=== PATIENT | male | born 1970 | race American Indian/Alaskan Native ===

== ENCOUNTER 2017-09-10 11:49 | Observation (INO) | payer MEDICAID, OTHER ==
[2017-09-10] MEDS ORDERED: Sodium Chloride 0.9% 10 ML Syringe FLUSH PRN (11:59)
[2017-09-10 12:45] LABS: ANION GAP 11.6; CHLORIDE,CL 92 mmol/L (101-111); SODIUM,NA 122 mmol/L (135-145)
[2017-09-10] MEDS ORDERED: Sodium Chloride 0.9% 1,000 ML IV ONE (13:02)
[2017-09-10] MEDS ORDERED: Insulin Regular, Human 100 Units/ML 3 ML Vial IV ONE (13:02)
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
[2017-09-10] MEDS ORDERED: Acetaminophen 325 MG Tab PO PRN (15:27)
[2017-09-10] MEDS ORDERED: Morphine 2 MG/ML Syringe IVPUSH PRN (15:27)
[2017-09-10] MEDS ORDERED: LORazepam 1 MG Tab PO PRN (15:39)
[2017-09-10] MEDS: Sodium Chloride 0.9% 1,000 ML IV SCH ×2 (16:11→22:29)
[2017-09-10] MEDS ORDERED: Insulin Detemir 100 Units/ML 3 ML Pen SUBCUT SCH (17:00)
[2017-09-10] MEDS: Insulin Detemir 100 Units/ML 3 ML Pen SUBCUT SCH (18:16)
[2017-09-10] MEDS: Insulin Aspart 100 Units/ML 3 ML Pen SUBCUT SCH ×3 (18:17→21:31)
[2017-09-10] MEDS ORDERED: Insulin Aspart 100 Units/ML 3 ML Pen SUBCUT SCH (19:00)
[2017-09-10] MEDS: oxyCODONE 5 MG Tab PO PRN ×2 (19:45→23:45)
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
[2017-09-10 21:30] LABS: ANION GAP 9.7; CHLORIDE,CL 105 mmol/L (101-111); SODIUM,NA 136 mmol/L (135-145)
[2017-09-10] MEDS: Zolpidem 5 MG Tab PO PRN (23:45)
[2017-09-11] MEDS: Sodium Chloride 0.9% 1,000 ML IV SCH ×3 (05:40→22:31)
[2017-09-11 06:46] LABS: ANION GAP 8.7; CHLORIDE,CL 106 mmol/L (101-111); SODIUM,NA 134 mmol/L (135-145)
[2017-09-11] MEDS: oxyCODONE 5 MG Tab PO PRN ×3 (08:41→21:00)
[2017-09-11] MEDS: Insulin Aspart 100 Units/ML 3 ML Pen SUBCUT SCH ×6 (08:42→21:01)
[2017-09-11] MEDS: Insulin Detemir 100 Units/ML 3 ML Pen SUBCUT SCH ×3 (08:43→21:01)
[2017-09-11] MEDS: Enoxaparin 40 MG/0.4 ML Syringe SUBCUT SCH (08:50)
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
[2017-09-11] MEDS: metFORMIN 500 MG Tab PO SCH ×2 (12:30→17:08)
[2017-09-11] MEDS: glipiZIDE 5 MG Tab PO SCH (17:07)
[2017-09-11] MEDS: Zolpidem 5 MG Tab PO PRN (21:01)
[2017-09-12] MEDS: glipiZIDE 5 MG Tab PO SCH (06:04)
[2017-09-12 06:49] LABS: ANION GAP 10.6; CHLORIDE,CL 102 mmol/L (101-111); SODIUM,NA 133 mmol/L (135-145)
[2017-09-12] MEDS: Insulin Aspart 100 Units/ML 3 ML Pen SUBCUT SCH ×4 (08:33→20:42)
[2017-09-12] MEDS: metFORMIN 500 MG Tab PO SCH ×2 (08:34→17:40)
[2017-09-12] MEDS: Enoxaparin 40 MG/0.4 ML Syringe SUBCUT SCH (08:34)
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
[2017-09-12] MEDS: oxyCODONE 5 MG Tab PO PRN ×2 (12:57→21:28)
[2017-09-12] MEDS ORDERED: glipiZIDE 5 MG Tab PO SCH (17:00)
[2017-09-12] MEDS: Insulin Detemir 100 Units/ML 3 ML Pen SUBCUT SCH (20:41)
[2017-09-12] MEDS: Zolpidem 5 MG Tab PO PRN (21:28)
[2017-09-13] MEDS ORDERED: glipiZIDE 5 MG Tab PO SCH (07:30)
[2017-09-13] MEDS: Insulin Aspart 100 Units/ML 3 ML Pen SUBCUT SCH (08:21)
[2017-09-13] MEDS: metFORMIN 500 MG Tab PO SCH (08:52)
[2017-09-13] MEDS: Enoxaparin 40 MG/0.4 ML Syringe SUBCUT SCH (08:53)
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
== END 2017-09-13 13:25 | disposition home or self-care (01) ==
LOC: DL.ED 11:49 → DL.MS 14:27 → UNDOADMOB 14:27 → DL.MS 15:27
PROVIDERS: ADMIT Internal Medicine; ATTEND Internal Medicine
DX: S00.81XA Abrasion of other part of head, initial encounter (principal); R74.0 Nonspecific elevation of levels of transaminase and lactic acid dehydrogenase [LDH]; Y09 Assault by unspecified means; E11.65 Type 2 diabetes mellitus with hyperglycemia; Z79.4 Long term (current) use of insulin; Z79.899 Other long term (current) drug therapy; Z87.891 Personal history of nicotine dependence
CPT/HCPCS: 36415; 73502; 80048; 80053; 80076; 80305; 81001; 82009; 82962; 83036; 85025; 85027; 96360; 99285; A9270; G0480; J1650; J1815; J7030; 96361; 96372; 96374; G0378

== ENCOUNTER 2020-11-22 19:40 | Emergency (ER) | payer MEDICAID, OTHER ==
[2020-11-22] MEDS ORDERED: Sodium Chloride 0.9% 1,000 ML IV ONE (20:00)
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
[2020-11-22 20:37] LABS: CHLORIDE,CL 94 mmol/L (98-107); SODIUM,NA 129 mmol/L (136-145)
[2020-11-22 20:39] LABS: ACETAMINOPHEN 0 ug/mL (10-30 (Therapeutic))
[2020-11-22] MEDS ORDERED: Glucagon,Human Recombinant 1 MG Vial IM PRN (20:46)
[2020-11-22] MEDS ORDERED: Insulin Glarg,Human.Rec.Analog 100 Unit/ML SUBCUT ONE (20:46)
[2020-11-22] MEDS ORDERED: 50% Dextrose in Water 50 ML Syringe IV PRN (20:46)
--- NOTE | 2020-11-22 21:03 | CR ---
PROCEDURE INFORMATION: Exam: XR Right Hip Exam date and time: 11/22/2020 8:35 PM Age: 50 years old Clinical indication: Other: Fall/pain; Additional info: Right hip pain TECHNIQUE: Imaging protocol: XR Right hip. Views: 2 or 3 views hip with pelvis when performed. Total images: 4 COMPARISON: CR Hip Min 2V or 3V w Pelvis Rt 09/10/2017 12:16 PM FINDINGS: Bones/joints: Degenerative changes of the visualized lumbosacral spine. Complex right hip arthroplasty in place. Alignment appears unchanged. No acute fracture. Soft tissues: Unremarkable. IMPRESSION: Similar appearance of right hip arthroplasty. No acute fracture.
== END 2020-11-22 21:40 ==
LOC: DL.ED 19:40
DX: E11.65 Type 2 diabetes mellitus with hyperglycemia (principal); M25.551 Pain in right hip; G89.29 Other chronic pain; F15.90 Other stimulant use, unspecified, uncomplicated; Z20.822 Contact with and (suspected) exposure to COVID-19; Z91.048 Other nonmedicinal substance allergy status; Z79.4 Long term (current) use of insulin
CPT/HCPCS: 36415; 73502; 80053; 80143; 80179; 80305; 80307; 81001; 82009; 82947; 85025; 87635; 99284; 99285; J1815; J7030; U0002

== ENCOUNTER 2020-11-25 17:54 | Emergency (ER) | payer OTHER ==
--- NOTE | 2020-11-25 18:42 | EDM.PDOC ---
<Vinay Chandler - Last Filed: 11/25/20 21:23> ED HPI GENERAL MEDICAL PROBLEM - General Chief Complaint: Diabetic Complaint Stated Complaint: AMBULANCE Time Seen by Provider: 11/25/20 18:34 Source of Information: Reports: Patient - History of Present Illness INITIAL COMMENTS - FREE TEXT/NARRATIVE: El is a 50 year old male with a significant past medical history of poorly controlled type 2 diabetes that presents to the emergency department for hyperglycemia. El checked his blood sugar earlier today and found that his blood sugar was in the 400's, he called EMS as he was concerned it was so high. He denies any headaches, dizziness, nausea, vomiting, chest pain, abdominal pain, melena or hematochezia. He has not had a PCP in around 1 year, he currently get's his Levemir from a friend, he takes anywhere from 2-10 units at a time. He does still take his metformin daily. He has been urinating more frequently lately. Onset: Today - Related Data Allergies Allergy/AdvReac Type Severity Reaction Status Date / Time adhesive Allergy Intermediate Rash Verified 11/25/20 18:15 adhesive tape Allergy Intermediate Rash Verified 11/25/20 18:15 Home Meds: Home Meds Insulin Detemir [Levemir] 10 unit SUBCUT BEDTIME 30 Days #1 pen 09/13/17 [Rx] glipiZIDE [Glucotrol XL] 10 mg PO DAILY 30 Days #30 tab.er 09/13/17 [Rx] metFORMIN [Glucophage] 500 mg PO BIDMEALS 30 Days #60 tablet 09/13/17 [Rx] Past Medical History HEENT History: Reports: None Musculoskeletal History: Reports: Fracture Endocrine/Metabolic History: Reports: Diabetes, Type II - Infectious Disease History Infectious Disease History: Reports: MRSA - Past Surgical History HEENT Surgical History: Reports: Naso-Sinus Surgery Endocrine Surgical History: Reports: None Musculoskeletal Surgical History: Reports: Hip Replacement Other Musculoskeletal Surgeries/Procedures:: R) Social & Family History - Family History Family Medical History: No Pertinent Family History - Tobacco Use Tobacco Use Status *Q: Never Tobacco User Second Hand Smoke Exposure: No - Caffeine Use Caffeine Use: Reports: Soda Other Caffeine Use: 4-5 cups per day - Recreational Drug Use Recreational Drug Use: Yes Recreational Drug Type: Reports: Methamphetamine - Living Situation & Occupation Living situation: Reports: with Family Occupation: Unemployed ED ROS GENERAL - Review of Systems Review Of Systems: Comprehensive ROS is negative, except as noted in HPI. ED EXAM GENERAL NO PERIP PULSE - Physical Exam Exam: See Below Exam Limited By: No Limitations General Appearance: Alert, WD/WN, No Apparent Distress Eye Exam: Bilateral Eye: EOMI Ears: Normal External Exam Nose: Normal Inspection Head: Atraumatic Respiratory/Chest: No Respiratory Distress, Lungs Clear, Normal Breath Sounds Cardiovascular: Normal Peripheral Pulses, Regular Rate, Rhythm GI/Abdominal: Normal Bowel Sounds, Soft, Non-Tender, No Organomegaly, No Distention, No Mass Neurological: Alert, Oriented, CN II-XII Intact, Normal Cognition, No Motor/Sensory Deficits Skin Exam: Warm, Dry Departure - Departure Time of Disposition: 21:28 Disposition: Home, Self-Care 01 Condition: Good Clinical Impression: Hyperglycemia due to type 2 diabetes mellitus Qualifiers: Diabetes mellitus snf insulin use: without terminal supervisor use Qualified Code(s): E11.65 - Type 2 diabetes mellitus with hyperglycemia - Discharge Information *PRESCRIPTION DRUG MONITORING PROGRAM REVIEWED*: Not Applicable *COPY OF PRESCRIPTION DRUG MONITORING REPORT IN PATIENT YULISA: Not Applicable Instructions: Type 2 Diabetes Mellitus, Diagnosis, Adult, [id number] Referrals: PCP,None [Primary Care Provider] - Forms: ED Department Discharge Additional Instructions: Follow-up with a primary care provider to help with glucose monitoring and insulin management. Advised that he should stop taking insulin that he buys off the street. Sepsis Event Note (ED) - Evaluation Sepsis Screening Result: No Definite Risk - Assessment/Plan Assessment:: El is a 50 year old poorly controlled diabetic that presented to the ED with hyperglycemia. CMP was significant for mild hyponatremia and hyperglycemia. He was treated with 1 bolus of fluids and 20 units of insulin. Glucose on recheck following treatment was 234. Lab work and exam was not suggestive of DKA. <Shereen Ray - Last Filed: 11/26/20 00:15> Course - Vital Signs Last Recorded V/S: Last Vital Signs Temp 98.2 F 11/25/20 18:15 Pulse 84 11/25/20 18:15 Resp 16 11/25/20 18:15 BP 144/76 H 11/25/20 18:15 Pulse Ox 100 11/25/20 18:15 - Orders/Labs/Meds Labs: Laboratory Tests 11/25/20 11/25/20 11/25/20 Range/Units 18:09 18:34 18:34 WBC 8.7 (5.0-10.0) 10^3/uL RBC 5.75 (4.6-6.2) 10^6/uL Hgb 15.8 (14.0-18.0) g/dL Hct 46.5 (40.0-54.0) % MCV 80.9 (80-100) fL MCH 27.5 (27.0-34.0) pg MCHC 34.0 (33.0-35.0) g/dL Plt Count 243 (150-450) 10^3/uL Neut % (Auto) 58.0 (42.2-75.2) % Lymph % (Auto) 31.0 (20.5-50.1) % [place] % (Auto) 8.7 H (2-8) % Eos % (Auto) 1.8 (1.0-3.0) % Baso % (Auto) 0.5 (0.0-1.0) % Sodium 129 L (136-145) mmol/L Potassium 4.1 (3.5-5.1) mmol/L Chloride 95 L (98-107) mmol/L Carbon Dioxide 27 (21-32) mmol/L Anion Gap 11.1 (7-13) mEq/L BUN 15 (7-18) mg/dL Creatinine 0.91 (0.70-1.30) mg/dL Est Cr Clr Drug Dosing 88.78 mL/min Estimated GFR (MDRD) > 60 BUN/Creatinine Ratio 16.5 (No establ ref range) Glucose 444 H* (70-99) mg/dL POC Glucose 401 H* (70-99) mg/dL Lactic Acid (0.4-2.0) mmol/L Calcium 8.1 L (8.5-10.1) mg/dL Magnesium 1.8 (1.8-2.4) mg/dL Total Bilirubin 0.6 (0.2-1.0) mg/dL AST 54 H (15-37) U/L ALT 78 H (16-63) U/L Alkaline Phosphatase 134 H (46-116) U/L Total Protein 7.8 (6.4-8.2) g/dL Albumin 2.9 L (3.4-5.0) g/dL Globulin 4.9 Albumin/Globulin Ratio 0.59 Urine Color (YELLOW) Urine Appearance (CLEAR) Urine pH (5.0-9.0) Ur Specific [place] (1.005-1.030) Urine Protein (NEGATIVE) Urine Glucose (UA) (NEGATIVE) Urine Ketones (NEGATIVE) Urine Occult Blood (NEGATIVE) Urine Nitrite (NEGATIVE) Urine Bilirubin (NEGATIVE) Urine Urobilinogen (0.2-1.0) mg/dL Ur Leukocyte Esterase (NEGATIVE) Urine RBC /HPF Urine WBC (0-5/HPF) /HPF Ur Epithelial Cells (NOT SEEN) /HPF Amorphous Sediment (NOT SEEN) /HPF Urine Bacteria (0-FEW/HPF) /HPF Urine Mucus (NOT SEEN) /LPF Urine Yeast (NOT SEEN) /HPF Ketones Negative 11/25/20 11/25/20 11/25/20 Range/Units 18:34 19:54 20:34 WBC (5.0-10.0) 10^3/uL RBC (4.6-6.2) 10^6/uL Hgb (14.0-18.0) g/dL Hct (40.0-54.0) % MCV (80-100) fL MCH (27.0-34.0) pg MCHC (33.0-35.0) g/dL Plt Count (150-450) 10^3/uL Neut % (Auto) (42.2-75.2) % Lymph % (Auto) (20.5-50.1) % [place] % (Auto) (2-8) % Eos % (Auto) (1.0-3.0) % Baso % (Auto) (0.0-1.0) % Sodium (136-145) mmol/L Potassium (3.5-5.1) mmol/L Chloride (98-107) mmol/L Carbon Dioxide (21-32) mmol/L Anion Gap (7-13) mEq/L BUN (7-18) mg/dL Creatinine (0.70-1.30) mg/dL Est Cr Clr Drug Dosing mL/min Estimated GFR (MDRD) BUN/Creatinine Ratio (No establ ref range) Glucose (70-99) mg/dL POC Glucose 407 H* (70-99) mg/dL Lactic Acid 1.0 (0.4-2.0) mmol/L Calcium (8.5-10.1) mg/dL Magnesium (1.8-2.4) mg/dL Total Bilirubin (0.2-1.0) mg/dL AST (15-37) U/L ALT (16-63) U/L Alkaline Phosphatase (46-116) U/L Total Protein (6.4-8.2) g/dL Albumin (3.4-5.0) g/dL Globulin Albumin/Globulin Ratio Urine Color Yellow (YELLOW) Urine Appearance Clear (CLEAR) Urine pH 6.5 (5.0-9.0) Ur Specific [place] 1.015 (1.005-1.030) Urine Protein 30 H (NEGATIVE) Urine Glucose (UA) >=1000 H (NEGATIVE) Urine Ketones Negative (NEGATIVE) Urine Occult Blood Negative (NEGATIVE) Urine Nitrite Negative (NEGATIVE) Urine Bilirubin Negative (NEGATIVE) Urine Urobilinogen 1.0 (0.2-1.0) mg/dL Ur Leukocyte Esterase Negative (NEGATIVE) Urine RBC 0-5 /HPF Urine WBC 0-5 (0-5/HPF) /HPF Ur Epithelial Cells Rare (NOT SEEN) /HPF Amorphous Sediment Occasional (NOT SEEN) /HPF Urine Bacteria Rare (0-FEW/HPF) /HPF Urine Mucus Not seen (NOT SEEN) /LPF Urine Yeast Occasional H (NOT SEEN) /HPF Ketones Meds: Medications Discontinued Medications Generic Name Dose Route Start Last Admin Trade Name Freq PRN Reason Stop Dose Admin Dextrose/Water 50 ml 11/25/20 18:57 50% Dextrose In Water 50 Ml Syringe IV Q15M PRN Hypoglycemia Dextrose/Water 50 ml 11/25/20 19:49 50% Dextrose In Water 50 Ml Syringe IV Q15M PRN Hypoglycemia Glucagon 1 mg 11/25/20 18:57 Glucagon,Human Recombinant 1 Mg Vial IM Q15M PRN Hypoglycemia Glucagon 1 mg 11/25/20 19:49 Glucagon,Human Recombinant 1 Mg Vial IM Q15M PRN Hypoglycemia Sodium Chloride 1,000 mls @ 999 mls/hr 11/25/20 19:49 11/25/20 19:52 Normal Saline IV 11/25/20 20:49 999 mls/hr .BOLUS ONE Administration Insulin Human Lispro 5 unit 11/25/20 18:57 11/25/20 19:58 Insulin Lispro 100 Units/Ml 3 Ml Vial SUBCUT 11/25/20 18:58 Not Given ONETIME ONE Insulin Human NPH 15 unit 11/25/20 20:37 Insulin Isophane Nph, Human 100 Units/Ml 3 Ml Vial SQ 11/25/20 20:38 ONETIME ONE Insulin Human Regular 5 unit 11/25/20 19:49 11/25/20 19:59 Insulin Regular, Human 100 Units/Ml 3 Ml Vial IV 11/25/20 19:50 5 units ONETIME ONE Administration Insulin Human Regular 15 unit 11/25/20 20:43 11/25/20 20:45 Insulin Regular, Human 100 Units/Ml 3 Ml Vial IV 11/25/20 20:44 15 units ONETIME ONE Administration Insulin Human Regular 15 unit 11/25/20 20:44 11/25/20 20:47 Insulin Regular, Human 100 Units/Ml 3 Ml Vial IV 11/25/20 20:45 Not Given ONETIME ONE Insulin NPH Beef/Pork 15 unit 11/25/20 20:38 11/25/20 20:46 Insulin Nph Hum/Reg Insulin Hm 100 Unit/Ml 3 Ml Vial SQ 11/25/20 20:39 Not Given ONETIME ONE Sodium Chloride 1,000 ml 11/25/20 19:39 11/25/20 19:59 Sodium Chloride 0.9% Irrigation 500 Ml Container IRR 11/25/20 19:40 Not Given ASDIRECTED ONE - Re-Assessments/Exams Free Text/Narrative Re-Assessment/Exam: 11/26/20 00:15 I have examined the patient. I have discussed findings and treatment plan with resident. I agree with assessment plan and documentation. Sepsis Event Note (ED) - Focused Exam Vital Signs: Vital Signs Temp Pulse Resp BP Pulse Ox 11/25/20 18:15 98.2 F 84 16 144/76 H 100
[2020-11-25] MEDS ORDERED: Insulin Lispro 100 Units/ML 3 ML Vial SUBCUT ONE (18:57)
[2020-11-25] MEDS ORDERED: Glucagon,Human Recombinant 1 MG Vial IM PRN ×2 (18:57→19:49)
[2020-11-25] MEDS ORDERED: 50% Dextrose in Water 50 ML Syringe IV PRN ×2 (18:57→19:49)
[2020-11-25 19:09] LABS: ANION GAP 11.1 mEq/L (7-13); CHLORIDE,CL 95 mmol/L (98-107); SODIUM,NA 129 mmol/L (136-145)
[2020-11-25] MEDS ORDERED: Sodium Chloride 0.9% Irrigation 500 ML Container IRR ONE (19:39)
[2020-11-25] MEDS ORDERED: Insulin Regular, Human 100 Units/ML 3 ML Vial IV ONE ×3 (19:49→20:44)
[2020-11-25] MEDS ORDERED: Sodium Chloride 0.9% 1,000 ML IV ONE (19:49)
[2020-11-25] MEDS ORDERED: Insulin Isophane NPH, Human 100 Units/ML 3 ML Vial SQ ONE (20:37)
[2020-11-25] MEDS ORDERED: Insulin NPH HUM/REG Insulin HM 100 UNIT/ML 3 ML Vial SQ ONE (20:38)
== END 2020-11-25 21:37 | disposition home or self-care (01) ==
LOC: DL.ED 17:54
DX: E11.65 Type 2 diabetes mellitus with hyperglycemia (principal); Z79.4 Long term (current) use of insulin; Z91.018 Allergy to other foods
CPT/HCPCS: 36415; 80053; 81001; 82009; 82947; 83605; 83735; 85025; 99284; 99285; J1815; J7030